=== PATIENT | female | born 1935 | race Caucasian/White ===

== ENCOUNTER 2018-05-31 20:28 | Emergency (ER) | payer OTHER ==
--- NOTE | 2018-05-31 21:27 | RAD REPORT ---
EXAM DESCRIPTION: CT - Head C Spine Mpr Wo Con - 05/31/2018 9:14 pm CLINICAL HISTORY: Head and neck injury status post fall. Head and neck pain COMPARISON: None. TECHNIQUE: Computed axial tomography of the head and cervical spine was obtained. Sagittal and coronal reconstruction was performed. All CT scans are performed using dose optimization technique as appropriate and may include automated exposure control or mA/KV adjustment according to patient size. FINDINGS: A left frontal scalp hematoma is present without an underlying skull fracture An intracranial bleed is not seen. The ventricles are normal in caliber. An extra-axial fluid collect ion is not noted.Fluid within the visualized sinuses and mastoids is not seen A cervical fracture is not visualized. No dislocation is noted. Mild anterior subluxation of C5 on C6 is seen IMPRESSION: No acute intracranial abnormality is seen. A cervical fracture is not visualized. If the patient continues to have symptoms to suggest intracra nial /spinal cord/ligamentous pathology then MRI would be recommended
[2018-05-31] MEDS ORDERED: ACETAMINOPHEN 325 MG TABLET ONE ×2 (21:57→21:59)
--- NOTE | 2018-05-31 21:58 | RAD REPORT ---
EXAM DESCRIPTION: RAD - Pelvis - 05/31/2018 9:46 pm CLINICAL HISTORY: Pelvic pain status post fall FINDINGS: Callus formation is present about subacute fractures of the right inferior and superior pu bic rami The bones are osteoporotic. No acute fracture or dislocation is seen
--- NOTE | 2018-05-31 22:00 | RAD REPORT ---
EXAM DESCRIPTION: Carol Single View05/31/2018 9:46 pm CLINICAL HISTORY: Chest pain COMPARISON: none FINDINGS: The lungs appear clear of acute infiltrate. The heart is mildly enlarged IMPRESSION: No acute abnormalities displayed
--- NOTE | 2018-05-31 22:00 | RAD REPORT ---
EXAM DESCRIPTION: RAD - Shoulder Left 2 View - 05/31/2018 9:46 pm CLINICAL HISTORY: Left shoulder pain status post fall FINDINGS: Moderately displaced comminuted fracture involves the distal left clavicle. No dislocation is seen
[2018-05-31 22:12] LABS: Urine Blood TRACE (NEG); Urine Glucose NEGATIVE (NEG); Urine Protein NEGATIVE (NEG); Urine pH 6.5 (5.0-7.0)
--- NOTE | 2018-06-01 00:23 | EDPHYS ---
Physician Documentation [facility] Name: Nieves Wu Age: 82 yrs Sex: Female : 1935 Arrival Date: 05/31/2018 Time: 20:31 Bed 19 Private MD: SB GREGORY ED Physician Erick Meneses HPI: 06/01 00:34 This 82 yrs old Female presents to ER via Wheelchair with complaints of Fall gs Injury, Shoulder Injury. 00:34 Details of fall: The patient fell from an upright position, while standing. Onset: The gs symptoms/episode began/occurred acutely, just prior to arrival. Associated injuries: The patient sustained injury to the head, hematoma, anterior aspect of left shoulder. Severity of symptoms: At their worst the symptoms were moderate, in the emergency department the symptoms are unchanged. The patient has experienced similar episodes in the past, a few times. Historical: - Allergies: 05/31 20:38 No Known Allergies; aj - Home Meds: 20:38 memantine oral oral [Active]; donepezil oral oral [Active]; aj - PMHx: 20:38 Dementia; aj - PSHx: 20:38 Hysterectomy; aj - Immunization history: Last tetanus immunization: unknown. - Social history:: Smoking status: Patient/guardian denies using tobacco. - Ebola Screening: : Patient negative for fever greater than or equal to 101.5 degrees Fahrenheit, and additional compatible Ebola Virus Disease symptoms Patient denies exposure to infectious person Patient denies travel to an Ebola-affected area in the 21 days before illness onset No symptoms or risks identified at this time. ROS: 06/01 00:34 All other systems are negative. gs Exam: 00:34 Head/Face: Normocephalic, atraumatic. Eyes: Pupils equal round and reactive to light, gs extra-ocular motions intact. Lids and lashes normal. Conjunctiva and sclera are non-icteric and not injected. Cornea within normal limits. Periorbital areas with no swelling, redness, or edema. ENT: Nares patent. No nasal discharge, no septal abnormalities noted. Tympanic membranes are normal and external auditory canals are clear. Oropharynx with no redness, swelling, or masses, exudates, or evidence of obstruction, uvula midline. Mucous membranes moist. Chest/axilla: Normal chest wall appearance and motion. Nontender with no deformity. No lesions are appreciated. Cardiovascular: Regular rate and rhythm with a normal S1 and S2. No gallops, murmurs, or rubs. Normal PMI, no JVD. No pulse deficits. Respiratory: Lungs have equal breath sounds bilaterally, clear to auscultation and percussion. No rales, rhonchi or wheezes noted. No increased work of breathing, no retractions or nasal flaring. Abdomen/GI: Soft, non-tender, with normal bowel sounds. No distension or tympany. No guarding or rebound. No evidence of tenderness throughout. Back: No spinal tenderness. No costovertebral tenderness. Full range of motion. Skin: Warm, dry with normal turgor. Normal color with no rashes, no lesions, and no evidence of cellulitis. Neuro: Awake and alert, GCS 15, oriented to person, place, time, and situation. Cranial nerves II-XII grossly intact. Motor strength 5/5 in all extremities. Sensory grossly intact. Cerebellar exam normal. Normal gait. 00:34 Constitutional: The patient appears alert, awake. 00:34 Neck: C-spine: vertebral tenderness, that is moderate, appreciated at C4 and C5. 00:34 Musculoskeletal/extremity: Circulation is intact in all extremities. Joints: All joints are normal except the left shoulder displays limited range of motion, painful range of motion, tenderness. Vital Signs: 05/31 20:34 BP 212 / 95; Pulse 66; Resp 16; Temp 97.0; Pulse Ox 98% on R/A; Weight 72.57 kg; Height aj 5 ft. 5 in. (165.10 cm); 22:00 BP 162 / 90 (man/); Pulse 72; Resp 13; Pulse Ox 100% ; ao 23:30 BP 146 / 92; Pulse 63; Resp 18; Pulse Ox 99% ; ao 06/01 00:45 BP 142 / 88; Pulse 72; Resp 18; Pulse Ox 98% on R/A; ao 05/31 20:34 Body Mass Index 26.63 (72.57 kg, 165.10 cm) aj [place] Coma Score: 05/31 20:34 Eye Response: spontaneous(4). Verbal Response: oriented(5). Motor Response: obeys aj commands(6). Total: 15. Trauma Score (Adult): 20:34 Eye Response: spontaneous(1); Verbal Response: oriented(1); Motor Response: obeys aj commands(2); Systolic BP: > 89 mm Hg(4); Respiratory Rate: 10 to 29 per min(4); [place] Score: 15; Trauma Score: 12 MDM: 20:52 Patient medically screened. 06/01 00:34 Differential diagnosis: closed head injury, contusion, fracture. Data reviewed: vital gs signs, nurses notes. Counseling: I had a detailed discussion with the patient and/or guardian regarding: the historical points, exam findings, and any diagnostic results supporting the discharge/admit diagnosis, radiology results, the need for outpatient follow up, to return to the emergency department if symptoms worsen or persist or if there are any questions or concerns that arise at home. Response to treatment: the patient's symptoms have mildly improved after treatment, and as a result, I will discharge patient. 05/31 20:48 Order name: Basic Metabolic Panel [facility] 05/31 20:48 Order name: CBC with Diff [facility] 05/31 20:48 Order name: Ckmb [facility] 05/31 20:57 Order name: CPK; Complete Time: 22:39 05/31 20:48 Order name: XRAY Chest (1 view); Complete Time: 22:06 [facility] 05/31 20:48 Order name: EKG; Complete Time: 20:49 [facility] 05/31 20:48 Order name: Cardiac monitoring; Complete Time: 21:13 [facility] 05/31 20:48 Order name: EKG - Nurse/Tech; Complete Time: 21:56 [facility] 05/31 20:48 Order name: IV Saline Lock; Complete Time: 21:56 [facility] 05/31 20:48 Order name: Labs collected and sent; Complete Time: 21:56 [facility] 05/31 20:48 Order name: O2 Per Protocol; Complete Time: 21:13 [facility] 05/31 20:48 Order name: O2 Sat Monitoring; Complete Time: 21:13 [facility] 05/31 20:48 Order name: Urine Dipstick-Ancillary (obtain specimen); Complete Time: 21:56 [facility] 05/31 20:48 Order name: CT Head C Spine; Complete Time: 22:06 [facility] 05/31 20:57 Order name: Shoulder Left (2 View) XRAY; Complete Time: 22:06 05/31 20:57 Order name: Pelvis XRAY; Complete Time: 22:06 05/31 21:35 Order name: Urine Dipstick--Ancillary (enter results); Complete Time: 22:39 ms Administered Medications: 05/31 21:55 Drug: Tylenol 650 mg Route: PO; ao 22:48 Follow up: Response: No adverse reaction ao Disposition: 06/01/18 00:22 Discharged to Home. Impression: Displaced fracture of lateral end of left clavicle. - Condition is Stable. - Discharge Instructions: Clavicle Fracture. - Prescriptions for Tylenol- Codeine #3 300-30 mg Oral Tablet - take 1 tablet by ORAL route every 6 hours As needed; 6 tablet. - Medication Reconciliation Form, Thank You Letter, Antibiotic Education, Prescription Opioid Use form. - Follow up: Ho Porter MD; When: 2 - 3 days; Reason: Re-evaluation by your physician. Signatures: Dispatcher [employer] EDMI Daija Spicer RN RN aj Therrien, Shelly, JOSE FRANCISCO-C STAFFING RECRUITER-Csnw Bruce Wells RN RN ao Starr, Gregory, MD MD Corrections: (The following items were deleted from the chart) 20:55 20:48 Basic Metabolic Panel ordered. EDMI EDMI 20:55 20:48 CKMB Creatine Kinase MB ordered. EDMI EDMS 20:55 20:49 CREATINE PHOSPHOKINASE+C.LAB.BRZ ordered. EDMI EDMS 20:55 20:49 HEPATIC FUNCTION+C.LAB.BRZ ordered. EDMI EDMI 20:55 20:49 MAGNESIUM+C.LAB.BRZ ordered. EDMI EDMI 20:55 20:49 PROBNP+C.LAB.BRZ ordered. EDMI EDMS 20:55 20:49 TROPONIN (EMERG DEPT USE ONLY)+C.LAB.BRZ ordered. EDMI EDMI 20:57 20:48 CBC with Automated Diff ordered. EDMI EDMS 20:58 20:49 PROTIME (+INR)+COAG.LAB.BRZ ordered. EDMI EDMS 20:58 20:49 PTT, ACTIVATED+COAG.LAB.BRZ ordered. [facility] 06/01 01:25 00:22 06/01/2018 00:22 Discharged to Home. Impression: Displaced fracture of lateral ao end of left clavicle. Condition is Stable. Forms are Medication Reconciliation Form, Thank You Letter, Antibiotic Education, Prescription Opioid Use. Follow up: Ho Porter; When: 2 - 3 days; Reason: Re-evaluation by your physician. gs
--- NOTE | 2018-06-01 00:23 | ER ---
Nurse's Notes [facility] Name: Nieves Wu Age: 82 yrs Sex: Female : 1935 Arrival Date: 05/31/2018 Time: 20:31 Bed 19 Private MD: SB GREGORY Diagnosis: Displaced fracture of lateral end of left clavicle Presentation: 05/31 20:34 Presenting complaint: Patient states: Family reports patient was found on kitchen floor aj after assumed fall. Patient has purple bruise to left upper forehead and reports left shoulder pain. Unsure of LOC. Mentation is WNL for patient. Care prior to arrival: None. Mechanism of Injury: Fall from standing position. Trauma event details: Injury occurred in the [facility], Injury occurred: at home. Injury occurred: May 31, 2018 Injury occurred at: 19:22. 20:34 Method Of Arrival: Wheelchair aj 20:34 Acuity: JOSEPH 2 aj 21:04 Transition of care: patient was not received from another setting of care. Onset of ao symptoms is unknown. Risk Assessment: Do you want to hurt yourself or someone else? Patient reports no desire to harm self or others. Initial Sepsis Screen: Does the patient meet any 2 criteria?. 21:04 Initial Sepsis Screen: Does the patient have a suspected source of infection? Yes: No. ao Patient's initial sepsis screen is negative. Trauma Activation: Alert Physician: ED Physician; Name: ; Notified At: ; Arrived At: Physician: General Surgeon; Name: ; Notified At: ; Arrived At: Physician: Radiology; Name: ; Notified At: ; Arrived At: Physician: Respiratory; Name: ; Notified At: ; Arrived At: Physician: Lab; Name: ; Notified At: ; Arrived At: Historical: - Allergies: 20:38 No Known Allergies; aj - Home Meds: 20:38 memantine oral oral [Active]; donepezil oral oral [Active]; aj - PMHx: 20:38 Dementia; aj - PSHx: 20:38 Hysterectomy; aj - Immunization history: Last tetanus immunization: unknown. - Social history:: Smoking status: Patient/guardian denies using tobacco. - Ebola Screening: : Patient negative for fever greater than or equal to 101.5 degrees Fahrenheit, and additional compatible Ebola Virus Disease symptoms Patient denies exposure to infectious person Patient denies travel to an Ebola-affected area in the 21 days before illness onset No symptoms or risks identified at this time. Screenin:03 Abuse screen: Denies threats or abuse. Denies injuries from another. Nutritional ao screening: No deficits noted. Tuberculosis screening: No symptoms or risk factors identified. Fall Risk Fall in past 12 months (25 points). Secondary diagnosis (15 points) dementia, IV access (20 points). Ambulatory Aid- Furniture (30 pts.). Gait- Weak (10 pts.). Mental Status- Overestimates/Forgets Limitations (15 pts.). Total Donovan Fall Scale indicates High Risk Score (45 or more points). Fall prevention measures have been instituted. Frequent Obs/Assessments Occuring Family Present and informed to notify staff if the need to leave the bedside As available patient and family educated on Fall Prevention Program and Strategies. Primary Survey: 20:34 A: Airway: patent. Breathing/Chest: Respiratory pattern: regular, Respiratory effort: aj spontaneous, unlabored, Breath sounds: clear. Circulation: Skin color: pink, Skin temperature: warm, dry. Disability Alert. 21:04 Reassessment Airway Airway Patent Breathing/Chest Respiratory pattern Regular ao Respiratory effort Spontaneous Unlabored Breath sounds Clear Chest inspection Symmetrical Circulation Heart rhythm Sinus rhythm Disability Alert. Assessment: 20:34 General: Appears in no apparent distress. comfortable, Behavior is calm, cooperative, aj appropriate for age. Pain: Complains of pain in top of head, anterior aspect of left shoulder and posterior aspect of left shoulder. Neuro: Level of Consciousness is awake, alert, obeys commands, Oriented to person, place, time, situation, Appropriate for age. Respiratory: Airway is patent Respiratory effort is even, unlabored, Respiratory pattern is regular, symmetrical. Derm: Skin is intact, is healthy with good turgor, Skin is pink, warm \T\ dry. normal, Bruising that is dark purple, on top of head. 20:45 Reassessment: Patient and family denies LOC. ao 20:55 General: Appears in no apparent distress. comfortable, Behavior is calm, cooperative, ao appropriate for age. Pain: Complains of pain in face Pain currently is 8 out of 10 on a pain scale. Neuro: Level of Consciousness is awake, alert, obeys commands, Oriented to person, place, time, situation, Appropriate for age Moves all extremities. Speech is normal, Facial symmetry appears normal. Cardiovascular: Denies chest pain, nausea, shortness of breath, vomiting, Heart tones S1 S2 Capillary refill < 3 seconds Patient's skin is warm and dry. Respiratory: Airway is patent Respiratory effort is even, unlabored, Respiratory pattern is regular, symmetrical. GI: Abdomen is non-distended. : No signs and/or symptoms were reported regarding the genitourinary system. EENT: No signs and/or symptoms were reported regarding the EENT system. Derm: Skin is intact, is healthy with good turgor, Skin is pink, warm \T\ dry. normal, Bruising that is dark purple, on top of head. Musculoskeletal: Circulation, motion, and sensation intact. Range of motion: limited in all extremities. 21:55 Reassessment: Patient appears in no apparent distress at this time. Patient and/or ao family updated on plan of care and expected duration. Pain level reassessed. Patient is alert, oriented x 3, equal unlabored respirations, skin warm/dry/pink. 23:10 Reassessment: Patient appears in no apparent distress at this time. Patient and/or ao family updated on plan of care and expected duration. Pain level reassessed. 06/01 00:20 Reassessment: Patient appears in no apparent distress at this time. Patient and/or ao family updated on plan of care and expected duration. Pain level reassessed. 01:00 Reassessment: DC instructions given to patient and family. Daughter in law and son ao agree with the POC and to follow up with Dr Porter. Vital Signs: 05/31 20:34 BP 212 / 95; Pulse 66; Resp 16; Temp 97.0; Pulse Ox 98% on R/A; Weight 72.57 kg; Height aj 5 ft. 5 in. (165.10 cm); 22:00 BP 162 / 90 (man/); Pulse 72; Resp 13; Pulse Ox 100% ; ao 23:30 BP 146 / 92; Pulse 63; Resp 18; Pulse Ox 99% ; ao 06/01 00:45 BP 142 / 88; Pulse 72; Resp 18; Pulse Ox 98% on R/A; ao 05/31 20:34 Body Mass Index 26.63 (72.57 kg, 165.10 cm) aj [place] Coma Score: 05/31 20:34 Eye Response: spontaneous(4). Verbal Response: oriented(5). Motor Response: obeys aj commands(6). Total: 15. Trauma Score (Adult): 20:34 Eye Response: spontaneous(1); Verbal Response: oriented(1); Motor Response: obeys aj commands(2); Systolic BP: > 89 mm Hg(4); Respiratory Rate: 10 to 29 per min(4); [place] Score: 15; Trauma Score: 12 ED Course: 20:31 Patient arrived in ED. am2 20:36 Triage completed. aj 20:37 SB GREGORY is Private Physician. am2 20:38 Arm band placed on left wrist. Patient placed in an exam room. aj 20:44 Erick Meneses MD is Attending Physician. gs 20:50 Bruce Wells, MARIA D is Primary Nurse. ao 21:05 Patient has correct armband on for positive identification. secured entrance monitor on. Pulse ao ox on. NIBP on. 21:05 Patient maintains SpO2 saturation greater than 95% on room air. Thermoregulation: warm ao blanket given to patient. 21:14 CT Head C Spine In Process Unspecified. EDMS 21:45 X-ray completed. Portable x-ray completed in exam room. Patient tolerated procedure bb2 well. 21:47 XRAY Chest (1 view) In Process Unspecified. EDMS 21:47 Shoulder Left (2 View) XRAY In Process Unspecified. EDMS 21:47 Pelvis XRAY In Process Unspecified. EDMS 22:00 Inserted saline lock: 22 gauge in right antecubital area, using aseptic technique. ao Blood collected. 06/01 00:22 Ho Porter MD is Referral Physician. gs 01:24 No provider procedures requiring assistance completed. IV discontinued, intact, ao bleeding controlled, No redness/swelling at site. Pressure dressing applied. Administered Medications: 05/31 21:55 Drug: Tylenol 650 mg Route: PO; ao 22:48 Follow up: Response: No adverse reaction ao Intake: 06/01 01:25 PO: 0ml; Total: 0ml. ao Outcome: 00:22 Discharge ordered by . gs 01:24 Discharged to home ambulatory. ao 01:24 Condition: stable 01:24 Discharge instructions given to patient, Instructed on discharge instructions, follow up and referral plans. Demonstrated understanding of instructions, follow-up care, medications, Prescriptions given X 1. 01:25 Patient's length of stay in the Emergency Department was greater than 2 hours. ao 01:25 Patient left the ED. ao Signatures: Dispatcher [employer] EDDaija Metz, Bruce Cisneros RN, RN RN ao Moreno, Amanda am2 Erick Meneses MD MD Riddhi Pennington 2
--- NOTE | 2018-06-01 12:09 | EKG ---
Test Date: 2018-05-31 Test Time: 21:40:11 Student Success Advisor: CHRISTINE MEASUREMENT RESULTS: Intervals: Rate: 56 VT: 146 QRSD: 82 QT: 478 QTc: 461 [place]: P: 66 VT: 146 QRS: 13 T: 42 INTERPRETIVE STATEMENTS: Sinus bradycardia with occasional premature ventricular complexes Possible Left atrial enlargement Cannot rule out Anterior infarct, age undetermined Abnormal ECG Compared to ECG 09/30/2017 00:39:32 Myocardial infarct finding now present T-wave abnormality no longer present Electronically Signed On 06-01-18 12:07:25 CDT by Trung Sharma
== END 2018-06-01 01:25 | disposition home or self-care (01) ==
LOC: ER 20:28
DX: S42.032A Displaced fracture of lateral end of left clavicle, initial encounter for closed fracture (principal); G30.9 Alzheimer's disease, unspecified; F02.80 Dementia in other diseases classified elsewhere, unspecified severity, without behavioral disturbance, psychotic disturbance, mood disturbance, and anxiety; W18.30XA Fall on same level, unspecified, initial encounter; Y93.9 Activity, unspecified
CPT/HCPCS: 36415; 70450; 71045; 72125; 72170; 81003; 82550; 93005; 99285